=== PATIENT | female | born 1955 | race Caucasian/White ===

== ENCOUNTER → 2020-09-29 | Outpatient (CLI) | payer OTHER | LOC: SJCVC 13:35 | PROVIDERS: ATTEND Internal Medicine Cardiovascular Disease | DX: I48.0 Paroxysmal atrial fibrillation (principal); I10 Essential (primary) hypertension; G47.33 Obstructive sleep apnea (adult) (pediatric); G43.909 Migraine, unspecified, not intractable, without status migrainosus; E03.9 Hypothyroidism, unspecified; E66.9 Obesity, unspecified; F32.9 Major depressive disorder, single episode, unspecified; I49.5 Sick sinus syndrome; G20 Parkinson's disease; F17.200 Nicotine dependence, unspecified, uncomplicated; Z98.84 Bariatric surgery status; Z79.899 Other long term (current) drug therapy; Z72.89 Other problems related to lifestyle ==

== ENCOUNTER 2020-10-06 06:32 | Observation (INO) | payer OTHER ==
[~2020-10-06] VITALS: Ht 157.5 cm; Wt 95.6 kg
[2020-10-06] VITALS (14 sets, daily range): BP systolic 102–153; BP diastolic 49–75
--- NOTE | ~2020-10-06 | P ---
[facility] [place] [address] PROCEDURE REPORT Name: ALANNA CUNNINGHAM Room #: [facility] M.R.#: [id number] Admission: 10/06/20 Attend Phys: Papo De La Torre MD Discharge: 10/07/20 Date of : 57 Report #: [id number] THIS REPORT FOR: cc: William Ferguson Jeffrey W. DO Couchonnal, Luis F. MD ~ DOC #: [id number] Papo De La Torre MD PREOPERATIVE DIAGNOSES: Atrial fibrillation, atrial flutter. POSTOPERATIVE DIAGNOSES: Atrial fibrillation, atrial flutter. PROCEDURE PERFORMED: 1. Atrial fibrillation ablation - CPT code 79833. 2. Program stimulation pacing after IV drug infusion, CPT code 34503. 3. 3D mapping. CPT code 14779. 4. Intracardiac echo, CPT code 86479. 5. Second pathway ablation, CPT code 56969. ANESTHESIA: The patient underwent general anesthesia with no anesthesia related complications. DESCRIPTION OF PROCEDURE: The patient underwent informed consent. She was then prepped and draped in a standard fashion. I obtained access in the right femoral vein, placing an 8, 9 and 7-Belarusian short sheath. At baseline, the patient was in sinus rhythm. Under fluoroscopy, I placed a decapolar catheter easily in the coronary sinus and ICE catheter into the right atrium. The patient was systemically heparinized. Transseptal was performed using SL1 sheath and a Davenport needle. This was straightforward. I exchanged for the cryosheath and then performed 3D mapping using the Lasso catheter. This did result in some episodes of atrial flutter, which eventually terminated. Next, the left superior pulmonary vein underwent 4 minute, followed by 3-minute, followed by a 4-minute freeze. During the third freeze, the vein isolated at 39 seconds. The left inferior pulmonary vein underwent a 4-minute freeze isolating at 32 seconds, the right superior pulmonary vein underwent a 3-minute freeze isolating at 30 seconds, and the right inferior pulmonary vein underwent a 3-minute freeze isolating at 40 seconds. Next, an EP study was performed. AV block was noted at 370 milliseconds. Atrial ERP was noted at 280 milliseconds at a [address] cycle length. Isoproterenol infusion was initiated at 2 mcg per minute. AV block was noted at 210 milliseconds. The patient had some short runs of atrial fibrillation and atrial flutter, but there was no evidence of SVT. Isoproterenol was discontinued. The patient was prepped for atrial flutter [address] [address] PROCEDURE REPORT Name: ALANNA CUNNINGHAM Room #: 212-P [facility] M.R.#: [id number] Admission: 10/06/20 Attend Phys: Papo De La Torre MD Discharge: 10/07/20 Date of : 57 Report #: [id number] ablation. I used an 8 mm and ramp sheath. Preablation, the trans-isthmus conduction time was 60 milliseconds. Post-ablation, it was 125 milliseconds. Post-ablation, the patient did well. There were no complications. She was in sinus rhythm. I measured an AH interval at 105 milliseconds, HV interval at 45 milliseconds. As such, the procedure was concluded. The patient received systemic protamine and catheters and sheaths were pulled. Hemostasis was obtained. CONCLUSION: 1. Successful AFib ablation. 2. Successful atrial flutter ablation with bidirectional block. MD SATNAM Arce/JAMES/ROZINA By: 1022 Papo De La Torre MD /nt
[2020-10-06] MEDS ORDERED: BUSPIRONE HCL7.5 MG PO (08:08)
[2020-10-06] MEDS ORDERED: NORVASC10 MG PO (08:08)
[2020-10-06 08:09] LABS: ABSOLUTE NEUTROPHILS 3.7 thou/uL (1.4-8.2); BASOPHILS 0.7 % (0.0-2.0); EOSINOPHILS 6.6 % (0.0-3.0); HEMATOCRIT 40.9 % (37.0-47.0); HEMOGLOBIN 13.7 gm/dL (12.0-15.0); MCH 31.5 pg (26.0-34.0); MCHC 33.5 g/dL (28.0-37.0); PLATELET COUNT 271 thou/uL (150-400); POLYS 41.7 % (36.0-66.0); RBC 4.35 mil/uL (4.20-5.00); RDW 14.4 % (10.5-14.5); WBC 8.8 thou/uL (4.0-11.0)
[2020-10-06] MEDS ORDERED: CELEBREX 200 M200 M1 PO (08:09)
[2020-10-06] MEDS ORDERED: CYMBALTA30 MG PO (08:10)
[2020-10-06] MEDS ORDERED: GABAPENTIN100 MG PO (08:11)
[2020-10-06] MEDS ORDERED: DULCOLAX STOOL100 M1 PO (08:11)
[2020-10-06] MEDS ORDERED: LEVO-T75 MCG PO (08:12)
[2020-10-06] MEDS ORDERED: LASIX 40 MG TAB40 M1 PO (08:12)
[2020-10-06] MEDS ORDERED: PROPAFENONE 22225 M1 PO (08:13)
[2020-10-06] MEDS ORDERED: METOPROLOL SUCC50 MG PO (08:13)
[2020-10-06] MEDS ORDERED: SINEMET 25-1001 EAC1 PO (08:14)
[2020-10-06] MEDS ORDERED: TIZANIDINE HCL4 M1 PO (08:15)
[2020-10-06] MEDS ORDERED: XARELTO20 MG PO (08:15)
[2020-10-06] MEDS ORDERED: TRAMADOL 50 MG50 MG PO (08:15)
[2020-10-06 08:18] LABS: CALCIUM 9.2 mg/dL (8.5-10.1); CREATININE 0.8 mg/dL (0.6-1.0); POTASSIUM 3.9 mmol/L (3.5-5.1)
[2020-10-06 08:24] LABS: APTT 26.8 Seconds (24.5-32.8); INR 0.95; PROTIME 10.4 Seconds (10.5-12.1)
[2020-10-06 08:25] LABS: ALBUMIN 3.6 g/dL (3.4-5.0); TOTAL BILIRUBIN 0.4 mg/dL (0.2-1.0); TOTAL PROTEIN 7.4 g/dL (6.4-8.2)
--- NOTE | 2020-10-06 18:40 | NUR ---
PT ADMITTED FROM CATH-LAB TODAY ABOUT 1300, PT HAS DONE AFIB/AFLUTTER ABLATION IN CATN-LAB TODAY, PT IS A&OX3, PT'S VS ARE STABLE, PT'S R GROIN CATH ACCESS DRESSING HAS SMALL BLEEDING WHEN PT GETS UP ABOUT 1700PM, RN HAS APPLIED PRESSURE DRESSING TO R GROIN PUNCTURE SITE FOR 15MIN, NO BLEEDING , NO BLEEDING BY THIS TIME, PT HAS MEDICATION FOR BACK PAIN, PT IS TOLERATED DINNER ,
[2020-10-07 03:21] VITALS: BP 107/54
--- NOTE | 2020-10-07 04:20 | NUR ---
ASSUMED CARE OF PATIENT AT 1900. RESTING COMFORTABLY IN BED. PAIN MEDS GIVEN FOR CHRONIC BACK PAIN. RELIEF OBTAINED. CALLS OUT APPROPRIATELY. PROGRESSING WELL TOWARDS POC GOALS.
[2020-10-07 07:10] VITALS: BP 111/67
[2020-10-07 10:53] VITALS: BP 111/67
--- NOTE | 2020-10-07 11:07 | NUR ---
PATIENT RIGHT GROIN BLEEDING AFTER STANDING UP THIS MORNING. AREA SOFT, NO HEMATOMA. NEW DRESSING APPLIED. WILL MONITOR BLEEDING AND UPDATE CARDIOLOGY. DISCHARGE ON HOLD UNTIL BLEEDING UNDER CONTROL AND SAFE FOR DISCHARGE.
[2020-10-07 11:35] VITALS: BP 111/67
--- NOTE | 2020-10-07 13:35 | NUR ---
PATIENT VSS, SINUS RHYTHM ON THE MONITOR. RIGHT TAISHA SITE BLEEDING PRESSURE HELD AND BLEEDING STOPPED. REDRESSED AREA. AREA SOFT, NO HEMATOMA. UPDATED DR. SLAUGHTER. PAITENT ON BEDREST FOR 2 HOURS AND AMBULATED WITH NO BLEEDING ISSUES. PATIENT READY FOR DISCHARGE. IV TAKEN OUT. TELE MONTIOR OFF. DISCHARGE PACKET REVIEWED WITH PATIENT AND SPOUSE. PATIENT DENIES ANY NEEDS OR CONCERNS. AWARE OF FOLLOW UP APPOINTMENTS. NO NEW SCRIPTS. SPOUSE HERE TO TRANSPORT PATIENT HOME.
== END 2020-10-07 13:35 | disposition home or self-care (01) ==
LOC: CATH 06:32 → 2N 12:39
PROVIDERS: ADMIT Internal Medicine Cardiovascular Disease; ATTEND Internal Medicine Cardiovascular Disease
DX: I48.0 Paroxysmal atrial fibrillation (principal); I10 Essential (primary) hypertension; G47.33 Obstructive sleep apnea (adult) (pediatric); E03.9 Hypothyroidism, unspecified; G43.909 Migraine, unspecified, not intractable, without status migrainosus; F32.9 Major depressive disorder, single episode, unspecified; E66.9 Obesity, unspecified; I49.5 Sick sinus syndrome; Z79.899 Other long term (current) drug therapy; Z68.38 Body mass index [BMI] 38.0-38.9, adult
CPT/HCPCS: 62110; 62900; 65020; 65060; 70005

== ENCOUNTER 2020-10-11 16:17 | Inpatient (IN) | payer OTHER ==
[~2020-10-11] VITALS: Ht 157.5 cm; Wt 90.6 kg
[~2020-10-11 16:17] MED LIST: BUSPIRONE HCL7.5 MG PO; CELEBREX 200 M200 M1 PO; CYMBALTA30 MG PO; DULCOLAX STOOL100 M1 PO; GABAPENTIN100 MG PO; LASIX 40 MG TAB40 M1 PO; LEVO-T75 MCG PO; METOPROLOL SUCC50 MG PO; NORVASC10 MG PO; PROPAFENONE 22225 M1 PO; SINEMET 25-1001 EAC1 PO; TIZANIDINE HCL4 M1 PO; TRAMADOL 50 MG50 MG PO; XARELTO20 MG PO
[2020-10-11 16:21] VITALS: BP 153/76
[2020-10-11 17:14] LABS: ABSOLUTE NEUTROPHILS 5.2 thou/uL (1.4-8.2); BASOPHILS 0.6 % (0.0-2.0); EOSINOPHILS 6.2 % (0.0-3.0); HEMATOCRIT 40.2 % (37.0-47.0); LYMPHOCYTES 32.6 % (24.0-44.0); MCH 32.4 pg (26.0-34.0); MCHC 34.7 g/dL (28.0-37.0); MCV 93.1 fL (80.0-100.0); MONOCYTES 8.8 % (1.0-8.0); PLATELET COUNT 278 thou/uL (150-400); POLYS 51.8 % (36.0-66.0); RBC 4.31 mil/uL (4.20-5.00); RDW 14.6 % (10.5-14.5); WBC 10.1 thou/uL (4.0-11.0)
[2020-10-11 17:19] LABS: CREATININE 0.8 mg/dL (0.6-1.0); POTASSIUM 4.2 mmol/L (3.5-5.1)
[2020-10-11 17:28] LABS: TROPONIN-I 0.48 ng/mL (<0.06)
[2020-10-11 18:11] VITALS: BP 133/67
[2020-10-11 19:54] VITALS: BP 123/74
[2020-10-11] MEDS ORDERED: HYDROCODON-ACE1 EA11 PO (23:01)
[2020-10-11] MEDS ORDERED: HYDROCODON-ACE1 EAC7 PO (23:03)
[2020-10-11 23:56] VITALS: BP 111/55
[2020-10-12 04:00] VITALS: BP 123/63
[2020-10-12 05:08] LABS: HEMATOCRIT 40.1 % (37.0-47.0); HEMOGLOBIN 13.2 gm/dL (12.0-15.0); MCH 31.3 pg (26.0-34.0); MCHC 32.8 g/dL (28.0-37.0); MCV 95.5 fL (80.0-100.0); RBC 4.2 mil/uL (4.20-5.00); RDW 14.7 % (10.5-14.5); WBC 8.7 thou/uL (4.0-11.0)
--- NOTE | 2020-10-12 05:41 | NUR ---
PATIENTS CARES WERE ASSUMED AFTER A TRANSFER FROM ER AT SHIFT CHANGE. PATIENT WAS ASSESSED AND MEDS WERE PASSED. PATIENT WAS ADMITTED TO THE FLOOR. MED REC COMPLETED AND ALLERGIES CHECKED. ROUNDING WAS DONE. THE BED ALARM IS ON. THE BED IS IN A LOW AND LOCKED POSITION
[2020-10-12 05:51] LABS: CALCIUM 8.7 mg/dL (8.5-10.1); CREATININE 0.9 mg/dL (0.6-1.0); POTASSIUM 4.1 mmol/L (3.5-5.1)
[2020-10-12 08:00] VITALS: BP 109/52
--- NOTE | 2020-10-12 08:42 | EKG ---
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
--- NOTE | 2020-10-12 09:28 | 2DMMODE ---
[facility] [place] [address] 2 D/M-MODE ECHOCARDIOGRAM Name: ALANNA CUNNINGHAM Room #: 205-P ADM IN M.R.#: [id number] Admission: 10/11/20 Attend Phys: Andre Nevarez MD Discharge: Date of : 57 Report #: [id number] THIS REPORT FOR: cc: Jarrell Parrish James L. DO Santiago, Patrick MD [facility] ~ APPROVED REPORT Study performed: 10/12/2020 08:29:39 EXAM: Comprehensive 2D, Doppler, and color-flow Echocardiogram Patient Location: Bedside Room #: 205 Status: routine BSA: 1.94 HR: 73 bpm BP: 109/52 mmHg Other Information Study Quality: Adequate Indications Dyspnea, elevated troponin. Status post Afib/ablation 10/06/20. Hx: HTN, SSS, tobacco. 2D Dimensions RVDd: 41.20 mm IVSd: 12.13 (7-11mm) LVOT Diam: 19.50 (18-24mm) LVDd: 37.69 mm PWd: 11.92 (7-11mm) LVDs: 21.85 (25-40mm) Left Atrium: 30.12 (27-40mm) Aortic Root: 31.82 mm Volumes Left Atrial Volume (Systole) Single Plane 4CH: 48.09 mL Single Plane 2CH: 36.23 mL LA ESV Index: 23.00 mL/m2 Aortic Valve AoV Peak Josef.: 1.77 m/s AO Peak Gr.: 12.59 mmHg LVOT Max P.75 mmHg LVOT Max V: 1.20 m/s XIOMARA Vmax: 2.02 cm2 [facility] [address] [place] [address] 2 D/M-MODE ECHOCARDIOGRAM Name: ALANNA CUNNINGHAM Room #: 205-P [facility]#: [id number] Admission: 10/11/20 Attend Phys: Andre Nevarez MD Discharge: Date of : 57 Report #: [id number] Mitral Valve E/A Ratio: 1.2 MV Decel. Time: 248.15 ms MV E Max Josef.: 0.73 m/s MV A Josfe.: 0.62 m/s MV PHT: 71.96 ms IVRT: 103.81 ms Pulmonary Valve PV Peak Josef.: 0.86 m/s PV Peak Gr.: 2.99 mmHg Tricuspid Valve TR Peak Josef.: 1.83 m/s RAP Estimate: 5.00 mmHg TR Peak Gr.: 13.36 mmHg PA Pressure: 18.00 mmHg Left Ventricle The left ventricle is normal size. There is normal LV segmental wall motion. Mild concentric left ventricular hypertrophy. Left ventricular systolic function is normal. LVEF is 60-65%. Moderate diastolic dysfunction is present (pseudonormal filling). Right Ventricle The right ventricle is normal size. The right ventricular systolic function is normal. Atria The left atrium size is normal. The right atrium size is normal. Aortic Valve The aortic valve is normal in structure; mildly calcified. No aortic regurgitation is present. There is no aortic valvular stenosis. Mitral Valve The mitral valve is normal in structure. There is no mitral valve regurgitation noted. No evidence of mitral valve stenosis. Tricuspid Valve The tricuspid valve is normal in structure. Trace tricuspid regurgitation. Estimated PAP < 20mmHg. Pulmonic Valve The pulmonary valve is normal in structure. There is no pulmonic [facility] [place] [address] [place] [address] 2 D/M-MODE ECHOCARDIOGRAM Name: ALANNA CUNNINGHAM Room #: 205-P [facility] M.R.#: [id number] Admission: 10/11/20 Attend Phys: Andre Nevarez MD Discharge: Date of : 57 Report #: [id number] valvular regurgitation. Great Vessels The aortic root is normal in size. The ascending aorta is normal in size. IVC is normal in size and collapses >50% with inspiration. Pericardium There is no pericardial effusion. <Conclusion> Normal left ventricle size/mild concentric hypertrophy Ejection fraction 60% Normal right ventricle size/function Normal atrial size Color-flow Doppler study was performed of the aortic/mitral/tricuspid/pulmonary valve Aortic valve mildly calcified without stenosis Moderate mitral annular calcification No evidence of mitral valve stenosis Trace tricuspid valve insufficiency Pulmonary systolic pressure estimated at less than 20 mmHg No pericardial effusion Normal aortic root size. <ELECTRONICALLY SIGNED> By: Mateusz Santiago MD, FACC 10/12/20926 6 6 Mateusz Santiago MD, FACC /INF
--- NOTE | 2020-10-12 11:15 | NUR ---
ORDERS RECEIVED FOR PT EVAL AND TREAT. SPOKE W/ Pt AND IN ROOM. Pt DECLINED PT NEEDS AT THIS TIME. STATED SHE HAS BEEN GETTING UP BY HERSELF W/O ISSUES. STATED 'I DON'T NEED IT.' RN CONFIRMED THAT Pt HAS BEEN MOBILIZING WELL. ACUTE PT TO SIGN OFF. PLEASE RE-CONSULT PT SERVICES IF Pt'S CONDITION CHANGES.
[2020-10-12 11:22] VITALS: BP 102/58
--- NOTE | 2020-10-12 12:06 | NUR ---
ADV. DIR. CONSULT [id number] COMPLETED BY JEN HERNANDEZ.
--- NOTE | 2020-10-12 12:23 | NUR ---
Chart reveiwed and case discussed with the care team. Pt having ablation today and likely dc ready tomorrow. PT/OT evals declined by the pt as she is up ad paulino and normally indep. She lives with her spouse and has health ins in place for f/u care at dc. Her pcp is Dr. Jarrell Parrish. No cm interventions indicated at this time. Will remain available should dc planning needs arise.
[2020-10-12 15:26] VITALS: BP 124/70
--- NOTE | 2020-10-12 16:56 | NUR ---
ASSESSMENT CHARTED - MEDS PER JUL - NO CO'S OF PAIN OR NAUSEA. JILL DIET AND FLUIDS. UP AD NUNO IN ROOM INDEPENDANTLY - PT RECEIEVING IV LASIX TODAY AND PROBABLY HOME IN THE AM PER DOCTORS NOTES. NO CO'S AT THE PRESENT TIME.
[2020-10-12 19:30] VITALS: BP 100/57
[2020-10-13 04:41] VITALS: BP 109/52
[2020-10-13 05:07] LABS: HEMOGLOBIN 13.5 gm/dL (12.0-15.0); MCHC 33.6 g/dL (28.0-37.0); MCV 95.2 fL (80.0-100.0); RBC 4.2 mil/uL (4.20-5.00); RDW 14.5 % (10.5-14.5); WBC 10.1 thou/uL (4.0-11.0)
[2020-10-13 05:15] LABS: CALCIUM 9.4 mg/dL (8.5-10.1); CREATININE 1.2 mg/dL (0.6-1.0); POTASSIUM 4.3 mmol/L (3.5-5.1)
--- NOTE | 2020-10-13 05:57 | NUR ---
PATIENTS CARES WERE ASSUMED AT SHIFT CHANGE. PATIENT WAS ASSESSED AND THE MEDS WERE PASSED.PATIENT WAS ABLE TO SLEEP 10 HOURS. PATIENT HAS DONE WELL. ROUNDS WERE MADE, PATIENT IS UP INDEPENDENTLY IN HER ROOM. SHE DISPLAYS A GOOD APPETITE.BED ALARM NOT ON. THE BED IS IN A LOW AND LOCKED POSITION
[2020-10-13 08:17] VITALS: BP 122/59
[2020-10-13] MEDS ORDERED: METOPROLOL SUCC25 M1 PO (12:16)
[2020-10-13 12:56] VITALS: BP 122/59
[2020-10-13 13:02] VITALS: BP 122/59
== END 2020-10-13 13:30 | disposition home or self-care (01) | DRG 291 ==
LOC: ER 16:17 → 2N 18:26 → EROBS 18:26 → 2N 19:35
PROVIDERS: Nurse Practitioner; ADMIT Hospitalist; ATTEND Hospitalist
DX: I11.0 Hypertensive heart disease with heart failure (principal); I50.31 Acute diastolic (congestive) heart failure; I48.92 Unspecified atrial flutter; I48.91 Unspecified atrial fibrillation; Z79.899 Other long term (current) drug therapy; E66.9 Obesity, unspecified; E03.9 Hypothyroidism, unspecified; G43.909 Migraine, unspecified, not intractable, without status migrainosus; F41.9 Anxiety disorder, unspecified; F17.210 Nicotine dependence, cigarettes, uncomplicated; F32.9 Major depressive disorder, single episode, unspecified; G47.33 Obstructive sleep apnea (adult) (pediatric); Z68.36 Body mass index [BMI] 36.0-36.9, adult; Z88.8 Allergy status to other drugs, medicaments and biological substances; Z98.84 Bariatric surgery status
CPT/HCPCS: 10081

== ENCOUNTER → 2021-01-24 | Outpatient (CLI) | payer OTHER ==
[~2021-01-24] MED LIST changes: +HYDROCODON-ACE1 EA11 PO; +HYDROCODON-ACE1 EAC7 PO; +METOPROLOL SUCC25 M1 PO
== END ==
LOC: SJCVC 13:28
PROVIDERS: ATTEND Internal Medicine Cardiovascular Disease
DX: I48.0 Paroxysmal atrial fibrillation (principal); E03.9 Hypothyroidism, unspecified; G47.33 Obstructive sleep apnea (adult) (pediatric); I10 Essential (primary) hypertension; G43.909 Migraine, unspecified, not intractable, without status migrainosus; G20 Parkinson's disease; G89.29 Other chronic pain; F32.9 Major depressive disorder, single episode, unspecified; I08.0 Rheumatic disorders of both mitral and aortic valves; R00.1 Bradycardia, unspecified; Z79.899 Other long term (current) drug therapy; Z88.8 Allergy status to other drugs, medicaments and biological substances; Z98.84 Bariatric surgery status; Z96.659 Presence of unspecified artificial knee joint; Z82.49 Family history of ischemic heart disease and other diseases of the circulatory system